=== PATIENT | male | born 1990 | race Caucasian/White ===

== ENCOUNTER 2017-01-11 16:25 | Observation (INO) ==
--- NOTE | 2017-01-11 16:55 | Emergency Department Report ---
Abdominal Pain HPI - General Chief Complaint: Abdominal Pain Stated Complaint: Severe Abdominal Pain Time Seen by Provider: 01/11/17 16:55 Source: patient Mode of arrival: ambulatory Limitations: no limitations - History of Present Illness HPI narrative: Patient is a 26-year-old male presents emergency room for evaluation of lower abdominal pain. Patient started yesterday somewhat suprapubic now somewhat localizes to the right lower quadrant. Patient's had nausea no vomiting has had bowel movements 3 there are softer. Patient denies any fevers or chills, this evening he decided present to the ER for evaluation MD complaint: abdominal pain Onset (ago): day(s) (2) Consistency: constant Location: periumbilical Severity: severe Severity scale (1-10): 9 Quality: cramping Radiation: RLQ Migration to: no migration - Related Data Home Medications Medication Instructions Recorded Confirmed No known Home medications [No home 01/11/17 01/11/17 meds] Allergies Allergy/AdvReac Type Severity Reaction Status Date / Time Iodine and Iodide Containing Allergy Unknown Rash Verified 01/11/17 16:56 Produc Review of Systems Constitutional: Reports: weakness. Denies: fever, chills Cardiovascular: Denies: chest pain, palpitations Gastrointestinal: Reports: abdominal pain, nausea. Denies: vomiting Genitourinary: Denies: dysuria, frequency Musculoskeletal: Denies: back pain Neurological: Denies: headache Psychiatric: Denies: anxiety, depression PFSH Patient Stated Medical History Hypertension Yes Surgical History: no abdominal surgery - Social History Smoking status: Never smoker Substance use type: does not use Alcohol intake frequency: does not drink Physical Exam - General General appearance: alert, in no apparent distress - Eye Eye exam: Present: EOMI - ENT ENT exam: Present: normal exam - Neck Neck exam: Present: full ROM - Chest Chest inspection: Present: symmetric chest wall rise. Absent: tenderness - Respiratory Respiratory exam: Present: normal lung sounds bilaterally, respiratory distress. Absent: wheezes, stridor - Cardiovascular Cardiovascular exam: Present: regular rate, normal rhythm, normal heart sounds - Abdominal Exam Abdominal exam: Present: soft, tenderness, guarding, normal bowel sounds, obturator sign, heel tap sign, tenderness at McBurney's Point Abdominal tenderness: Present: RLQ, suprapubic, moderate - Extremities Exam Extremities exam: Present: full ROM - Back Exam Back exam: Present: full ROM - Skin Skin exam: Present: warm, dry - Neurological Exam Neurological exam: Present: alert, oriented X3 - Psychiatric Psychiatric exam: Present: normal affect, normal mood Course Vital Signs Temperature 98.7 F 01/11/17 16:33 Pulse Rate 91 01/11/17 16:33 Respiratory Rate 18 01/11/17 16:33 Blood Pressure 163/66 H 01/11/17 16:33 Pulse Oximetry 98 01/11/17 16:33 Temperature 98.7 F 01/11/17 16:33 Pulse Rate 91 01/11/17 16:33 Respiratory Rate 18 01/11/17 16:33 Blood Pressure 163/66 H 01/11/17 16:33 Pulse Oximetry 98 01/11/17 16:33 Abdominal Pain - MDM Narrative Medical decision making narrative: Discuss case with Dr. Pratik Sprague, he would recommend Invanz 1 g IV, he will evaluate patient for surgery - Differential Diagnosis Differential diagnosis: Likely: abdominal pain, acute appendicitis, calculus of kidney, constipation, diverticulitis, endometriosis, gastroenteritis, small bowel obstruction - Medical Records Attestation: I reviewed the patient's medical records. - Lab Data Attestation: I reviewed the patient's lab results. Result diagrams: 01/11/17 17:41 01/11/17 17:41 - Radiology Data Attestation: I reviewed the patient's radiology results. CT scan consistent with very early appendicitis Disposition Prescriptions: No Action No known Home medications [No home meds] 0 #0 misc - Seen By: physician
[2017-01-11] MEDS ORDERED: FentaNYL 100 MCG/2 ML INJECTION IVP ONE (16:59)
[2017-01-11] MEDS ORDERED: ONDANSETRON 4 MG/2 ML INJECTION IVP ONE (16:59)
--- OUTSIDE RECORDS SUMMARY | 2017-01-11 17:00 | External Medical Summary | Referral Summary ---
:1990 Author Organization [facility] Address [address] [place] [address] Care Team Providers Name Role Phone Carolynn Sandoval Primary Care Physician Encounter [facility] [id number] Date(s): 06/19/16 - 06/19/16 [address] [place] [address] [place] Discharge Diagnosis: Chronic back pain Discharge Disposition: 01-Home or Self Care Attending Physician: Vadim Silver MD Admitting Physician: Vadim Silver MD Vital Signs Most recent to oldest [Reference Range]: 1 Temperature Oral [35.8-37.3 degC] 37.1 degC (06/19/16 6:42 PM) Peripheral Pulse Rate [60-100 bpm] 86 bpm (06/19/16 6:42 PM) Respiratory Rate [14-20 br/min] 16 br/min (06/19/16 6:42 PM) Blood Pressure [90-140/60-90 mmHg] 143/83mmHg *HI* (06/19/16 6:42 PM) SpO2 100 % (06/19/16 6:42 PM) Problem List Condition Effective Dates Status Health Status Informant Allergies(Confirmed) Active Carpal tunnel syndrome(Confirmed) Active Hypertension(Confirmed) Active patient Right knee injury(Confirmed) 2010 Active Kidney stones(Confirmed) Active patient Narcotic addiction(Confirmed) Active patient Tobacco user(Confirmed) Active patient Allergies, Adverse Reactions, Alerts Substance Reaction Severity Status iodine Adverse Reaction Mild Active Medications cyclobenzaprine 10 mg oral tablet 10 mg 1 tabs, Oral, TID, as needed for spasm, # 30 tabs, 0 Refill(s) Start Date: 06/19/16 Stop Date: 06/19/17 Status: Orderedcyclobenzaprine 10 mg oral tablet 10 mg 1 tabs, Oral, TID, as needed for spasm, # 30 tabs, 0 Refill(s) Start Date: 07/02/15 Status: Orderedcyclobenzaprine 10 mg oral tablet 10 mg 1 tabs, Oral, TID, as needed for spasm, YULIA/Vadim Silver MD., X 3 days, # 9 tabs, 0 Refill(s) Start Date: 06/18/16 Stop Date: 06/21/16 Status: OrderedHYDROcodone-acetaminophen 5 mg-325 mg oral tablet 1 tabs, Oral, q4hr, Pain Moderate (4-6), # 12 tabs, 0 Refill(s) Start Date: 05/11/14 Status: Orderedibuprofen 800 mg oral tablet 800 mg 1 tabs, Oral, TID, # 90 tabs, 0 Refill(s) Start Date: 07/02/15 Status: Orderedibuprofen 800 mg oral tablet 1 tabs, Oral, q8hr, as needed for pain, # 21 tabs, 0 Refill(s) Start Date: 01/09/14 Stop Date: 01/16/14 Status: Orderedlisinopril Oral, Daily, 0 Refill(s) Start Date: 11/17/15 Status: OrderedNorco 5 mg-325 mg oral tablet 1 tabs, Oral, q4hr, as needed for pain, not to exceed 8 tablets/day YULIA/Vadim Silver MD., # 12 tabs, 0 Refill(s) Start Date: 06/18/16 Stop Date: 06/23/16 Status: OrderedNorco 7.5 mg-325 mg oral tablet 1 tabs, Oral, q6hr, # 12 tabs, 0 Refill(s) Start Date: 07/02/15 Status: OrderedOrajel Mouth Sore Rinse 1.5% mucous membrane solution 0.15 g 10 mL, Oral, QIDACHS, swish and spit; do not swallow, # 280 mL, 0 Refill( s) Start Date: 04/24/15 Stop Date: 05/01/15 Status: OrderedPriLOSEC 20 mg oral delayed release capsule 20 mg 1 caps, Oral, Daily, # 30 caps, 0 Refill(s) Start Date: 03/13/16 Status: Ordered Results No data available for this section Immunizations No data available for this section Procedures Procedure Date Related Diagnosis Body Site Closed Tx of the Rt Tibia Plateau Fx 02/08/11 Arthroscopy of knee Bilateral Myringotomy1 Rt Testicle Lowered [place] teeth removed 1as an Social History Social History Type Response Smoking Status Current every day smoker; Type: chewing tobacco1 1x 10 years Assessment and Plan No data available for this section
--- OUTSIDE RECORDS SUMMARY | 2017-01-11 17:00 | External Medical Summary | Referral Summary ---
:1990 Author Organization [facility] Address [address] [place] [address] Care Team Providers Name Role Phone Carolynn Sandoval Primary Care Physician Encounter [facility] [id number] Date(s): 03/12/16 - 03/13/[address] [address] Discharge Diagnosis: Abdominal pain Discharge Diagnosis: Depression Discharge Disposition: 01-Home or Self Care Attending Physician: Vadim Silver MD Admitting Physician: Vadim Silver MD Vital Signs Most recent to oldest [Reference Range]: 1 Temperature Oral [35.8-37.3 degC] 36.9 degC (03/12/16 9:37 PM) Peripheral Pulse Rate [60-100 bpm] 78 bpm (03/13/16 3:59 AM) Heart Rate Monitored [60-100 bpm] 68 bpm (03/13/16 2:50 AM) Respiratory Rate [14-20 br/min] 18 br/min (03/13/16 3:59 AM) Blood Pressure [90-140/60-90 mmHg] 136/87mmHg (03/13/16 3:59 AM) Mean Arterial Pressure, Cuff 87 mmHg (03/13/16 2:50 AM) SpO2 100 % (03/13/16 3:59 AM) Problem List Condition Effective Dates Status Health [...] tabs, 0 Refill(s) Start Date: 07/02/15 Status: OrderedHYDROcodone-acetaminophen 5 mg-325 mg oral tablet [...] 0 Refill(s) Start Date: 11/17/15 Status: OrderedNorco 7.5 mg-325 mg oral tablet [...] Refill(s) Start Date: 03/13/16 Status: Ordered Results Hematology Most recent to oldest [Reference Range]: 1 WBC [4.8-10.8 10*3/uL] 10.4 10*3/uL (03/12/16 11:48 PM) RBC [4.60-6.20] 5.65 (03/12/16 11:48 PM) Hgb [14.0-18.0 gm/dL] 16.9 gm/dL (03/12/16 11:48 PM) Hct [42.0-52.0 %] 47.5 % (03/12/16 11:48 PM) MCV [82.0-99.0 fL] 84.1 fL (03/12/16 11:48 PM) MCH [27.0-32.0 pg] 29.9 pg (03/12/16 11:48 PM) MCHC [32.0-36.0 gm/dL] 35.6 gm/dL (03/12/16 11:48 PM) RDW [11.5-14.5 %] 12.3 % (03/12/16 11:48 PM) Platelet [150-400 10*3/uL] 263 10*3/uL (03/12/16 11:48 PM) MPV [9.4-12.3 fL] 10.9 fL (03/12/16 11:48 PM) Immature Granulocytes [0.0-1.0 %] 0.2 % (03/12/16 11:48 PM) Neutrophils [51-75 %] 57 % (03/12/16 11:48 PM) Lymphocytes [20-46 %] 32 % (03/12/16 11:48 PM) Monocytes [4-11 %] 8 % (03/12/16 11:48 PM) Eosinophils [0-4 %] 2 % (03/12/16 11:48 PM) Basophils [0-2 %] 0 % (03/12/16 11:48 PM) Neutro Absolute [1.90-7.00 10*3] 5.95 10*3 (03/12/16 11:48 PM) Lymph Absolute [0.80-3.30 10*3] 3.36 10*3 *HI* (03/12/16 11:48 PM) George Absolute [0.30-1.00 10*3] 0.84 10*3 (03/12/16 11:48 PM) Eos Absolute [0.00-0.50 10*3] 0.23 10*3 (03/12/16 11:48 PM) Baso Absolute [0.00-0.20 10*3] 0.01 10*3 (03/12/16 11:48 PM) Nucleated RBC Automated [0 /100 WBC] 0.0 /100 WBC (03/12/16 11:48 PM) Differential Scanned Slide (03/12/16 11:48 PM) Chemistry Most recent to oldest [Reference Range]: 1 Sodium Lvl [136-144 mEq/L] 139 mEq/L (03/12/16 11:48 PM) Potassium Lvl [3.6-5.1 mEq/L] 3.6 mEq/L (03/12/16 11:48 PM) Chloride [99-109 mEq/L] 106 mEq/L (03/12/16 11:48 PM) CO2 [22-32 mEq/L] 25 mEq/L (03/12/16 11:48 PM) AGAP [3-20] 8 (03/12/16 11:48 PM) BUN [4-20 mg/dL] 10 mg/dL (03/12/16 11:48 PM) Glucose Lvl [70-100 mg/dL] 94 mg/dL (03/12/16 11:48 PM) Creatinine Lvl [0.64-1.27 mg/dL] 0.78 mg/dL (03/12/16 11:48 PM) eGFR [>60] >601 (03/12/16 11:48 PM) Calcium Lvl [8.6-10.0 mg/dL] 9.5 mg/dL (03/12/16 11:48 PM) Albumin Lvl [3.5-4.8 gm/dL] 4.4 gm/dL (03/12/16 11:48 PM) Total Protein [6.1-7.9 gm/dL] 7.5 gm/dL (03/12/16 11:48 PM) Globulin [1.9-4.3 gm/dL] 3.1 gm/dL (03/12/16 11:48 PM) ALT [17-63 U/L] 53 U/L (03/12/16 11:48 PM) AST [15-41 U/L] 28 U/L (03/12/16 11:48 PM) Alk Phos [26-104 U/L] 111 U/L *HI* (03/12/16 11:48 PM) Bili Total [0.2-1.2 mg/dL] 1.1 mg/dL2 (03/12/16 11:48 PM) Lipase Lvl [8-48 U/L] 30 U/L (03/12/16 11:48 PM) 1Result Comment: Multiply eGFR results by 1.21 for race.2Result Comment: Naproxen, specifically the metabolite O-desmethylnaproxen, may cause spurious elevation in Total Bilirubin levels.Urinalysis Most recent to oldest [Reference Range]: 1 UA Color Yellow (03/12/16 11:48 PM) UA Appear Clear (03/12/16 11:48 PM) UA pH [5.0-8.0] 6.0 (03/12/16 11:48 PM) UA Leuk Est [Negative] Negative (03/12/16 11:48 PM) UA Nitrite [Negative] Negative (03/12/16 11:48 PM) UA Protein [Negative] Negative (03/12/16 11:48 PM) UA Glucose [Negative] Negative (03/12/16 11:48 PM) UA Ketones [Negative] Negative (03/12/16 11:48 PM) UA Urobilinogen [<1.0 mg/dL] 2.0 mg/dL *ABN* (03/12/16 11:48 PM) UA Bili [Negative] Negative (03/12/16 11:48 PM) UA Blood [Negative] Negative (03/12/16 11:48 PM) UA Spec Grav [1.003-1.030] 1.025 (03/12/16 11:48 PM) Type Clean Catch (03/12/16 11:48 PM) Immunizations No data available for this section Procedures Procedure Date Related Diagnosis Body Site Closed Tx of the Rt Tibia Plateau Fx 02/08/11 Arthroscopy of knee Bilateral Myringotomy1 Rt Testicle Lowered [place] teeth removed 1as an Social History Social History Type Response Smoking Status Current every day smoker; Type: chewing tobacco1 1x 10 years Assessment and Plan No data available for this section
--- OUTSIDE RECORDS SUMMARY | 2017-01-11 17:00 | External Medical Summary | Referral Summary ---
:1990 Author Organization [facility] Address [address] [place] [address] Care Team Providers Name Role Phone No PCP, States Primary Care Physician Encounter [facility] [id number] Date(s): 07/04/15 - 07/04/15 [address] [place] [address] [phone] Discharge Diagnosis: Epididymitis Discharge Disposition: 01-Home or Self Care Attending Physician: Vadim Silver MD Admitting Physician: Vadim Silver MD Vital Signs Most recent to oldest [Reference Range]: 1 Temperature Oral [35.8-37.3 degC] 36.8 degC (07/04/15 5:01 PM) Peripheral Pulse Rate [60-100 bpm] 93 bpm (07/04/15 5:01 PM) Heart Rate Monitored [60-100 bpm] 96 bpm (07/04/15 10:15 PM) Respiratory Rate [14-20 br/min] 18 br/min (07/04/15 10:15 PM) Blood Pressure [90-140/60-90 mmHg] 135/91mmHg (07/04/15 10:15 PM) SpO2 98 % (07/04/15 10:15 PM) Problem List Condition Effective Dates Status Health Status Informant Allergies(Confirmed) Active Carpal tunnel syndrome(Confirmed) Active Hypertension(Confirmed) Active patient Right knee injury(Confirmed) 2010 Active Kidney stones(Confirmed) Active patient Narcotic addiction(Confirmed) Active patient Tobacco user(Confirmed) Active patient Allergies, Adverse Reactions, Alerts Substance Reaction Severity Status iodine Adverse Reaction Active Medications calcium carbonate 0 Refill(s) Start Date: 08/01/14 Status: OrderedCipro 500 mg oral tablet 500 mg 1 tabs, Oral, q12hr, X 7 days, # 14 tabs, 0 Refill(s) Start Date: 07/04/15 Stop Date: 07/11/15 Status: Orderedcyclobenzaprine 10 mg oral tablet 10 mg 1 tabs, Oral, TID, as needed for spasm, # 30 tabs, 0 Refill(s) Start Date: 07/02/15 Status: Orderedcyclobenzaprine 10 mg oral tablet 10 mg 1 tabs, Oral, Bedtime (once a day), as needed for spasm, X 5 days, # 5 tabs, 0 Refill(s) Start Date: 07/04/15 Stop Date: 07/09/15 Status: OrderedDHEA Oral, Daily, 0 Refill(s) Start Date: 08/01/14 Status: OrderedHYDROcodone-acetaminophen 5 mg-325 mg oral tablet 1 tabs, Oral, q4hr, Pain Moderate (4-6), # 12 tabs, 0 Refill(s) Start Date: 05/11/14 Status: Orderedibuprofen 600 mg oral tablet 1 tabs, Oral, q8hr, # 30 tabs, 0 Refill(s) Start Date: 01/24/14 Status: Orderedibuprofen 800 mg oral tablet 800 mg 1 tabs, Oral, TID, # 90 tabs, 0 Refill(s) Start Date: 07/02/15 Status: Orderedibuprofen 800 mg oral tablet 1 tabs, Oral, q8hr, as needed for pain, # 21 tabs, 0 Refill(s) Start Date: 01/09/14 Stop Date: 01/16/14 Status: Orderedmagnesium lactate mg, Oral, BID, 0 Refill(s) Start Date: 08/01/14 Status: OrderedMedrol Dosepak 4 mg oral tablet 1 packets, Oral, Once, as directed on package labeling, # 21 tabs, 0 Refill(s) Start Date: 02/07/15 Status: OrderedNaprosyn 375 mg oral tablet 375 mg 1 tabs, Oral, BID, as needed for pain, # 20 tabs, 0 Refill(s) Start Date: 01/31/15 Stop Date: 02/10/15 Status: OrderedNorco 7.5 mg-325 mg oral tablet 1 tabs, Oral, q6hr, # 12 tabs, 0 Refill(s) Start Date: 07/02/15 Status: OrderedOrajel Mouth Sore Rinse 1.5% mucous membrane solution 0.15 g 10 mL, Oral, QIDACHS, swish and spit; do not swallow, # 280 mL, 0 Refill( s) Start Date: 04/24/15 Stop Date: 05/01/15 Status: OrderedtraMADol 50 mg oral tablet 50 mg 1 tabs, Oral, q12hr, as needed for pain, X 5 days, # 10 tabs, 0 Refill(s) Start Date: 07/04/15 Stop Date: 07/09/15 Status: OrderedVitamin C 0 Refill(s) Start Date: 08/01/14 Status: Ordered Results Urinalysis Most recent to oldest [Reference Range]: 1 UA Color Yellow (07/04/15 6:54 PM) UA Appear Clear (07/04/15 6:54 PM) UA pH [5.0-8.0] 7.0 (07/04/15 6:54 PM) UA Leuk Est [Negative] Negative (07/04/15 6:54 PM) UA Nitrite [Negative] Negative (07/04/15 6:54 PM) UA Protein [Negative] Negative (07/04/15 6:54 PM) UA Glucose [Negative] Negative (07/04/15 6:54 PM) UA Ketones [Negative] Negative (07/04/15 6:54 PM) UA Urobilinogen [<1.0 mg/dL] >=4.0 mg/dL (07/04/15 6:54 PM) UA Bili [Negative] Negative (07/04/15 6:54 PM) UA Blood [Negative] Negative (07/04/15 6:54 PM) UA Spec Grav [1.003-1.030] 1.025 (07/04/15 6:54 PM) Type Clean Catch (07/04/15 6:54 PM) Immunizations No data available for this section Procedures Procedure Date Related Diagnosis Body Site Closed Tx of the Rt [place] Plateau Fx 02/08/11 Arthroscopy of knee Bilateral Myringotomy1 Rt Testicle Lowered [place] teeth removed 1as an Social History Social History Type Response Smoking Status Current every day smoker; Type: chewing tobacco1 1x 10 years Assessment and Plan No data available for this section
--- OUTSIDE RECORDS SUMMARY | 2017-01-11 17:00 | External Medical Summary | Referral Summary ---
:1990 Author Organization [facility] Address [address] [place] [address] Care Team Providers Name Role Phone No PCP, Pt States Primary Care Physician Encounter [facility] [id number] Date(s): 01/04/16 - 01/04/[address] [address] [phone] Discharge Disposition: Left Without Being Seen Attending Physician: Vadim Silver MD Admitting Physician: Vadim Silver MD Vital Signs Most recent to oldest [Reference Range]: 1 Temperature Oral [35.8-37.3 degC] 37.5 degC *HI* (01/04/16 1:41 PM) Peripheral Pulse Rate [60-100 bpm] 102 bpm *HI* (01/04/16 1:41 PM) Respiratory Rate [14-20 br/min] 18 br/min (01/04/16 1:41 PM) Blood Pressure [90-140/60-90 mmHg] 146/81mmHg *HI* (01/04/16 1:41 PM) SpO2 97 % (01/04/16 1:41 PM) Problem List Condition Effective Dates Status Health Status Informant Allergies(Confirmed) Active Carpal tunnel syndrome(Confirmed) Active Hypertension(Confirmed) Active patient Right knee injury(Confirmed) 2010 Active Kidney stones(Confirmed) Active patient Narcotic addiction(Confirmed) Active patient Tobacco user(Confirmed) Active patient Allergies, Adverse Reactions, Alerts Substance Reaction Severity Status iodine Adverse Reaction Mild Active Medications calcium carbonate 0 Refill(s) Start Date: 08/01/14 Status: Orderedcyclobenzaprine 10 mg oral tablet 10 mg 1 tabs, Oral, TID, as needed for spasm, # 30 tabs, 0 Refill(s) Start Date: 07/02/15 Status: OrderedDHEA Oral, Daily, 0 Refill(s) Start Date: 08/01/14 Status: OrderedHYDROcodone-acetaminophen 5 mg-325 mg oral tablet 1 tabs, Oral, q4hr, Pain Moderate (4-6), # 12 tabs, 0 Refill(s) Start Date: 05/11/14 Status: Orderedibuprofen 600 mg oral tablet 1 tabs, Oral, q8hr, # 30 tabs, 0 Refill(s) Start Date: 01/24/14 Status: Orderedibuprofen 800 mg oral tablet 800 mg 1 tabs, Oral, TID, as needed for pain, # 20 tabs, 0 Refill(s) Start Date: 11/02/15 Status: Orderedibuprofen 800 mg oral tablet 800 mg 1 tabs, Oral, TID, # 90 tabs, 0 Refill(s) Start Date: 07/02/15 Status: Orderedibuprofen 800 mg oral tablet 1 tabs, Oral, q8hr, as needed for pain, # 21 tabs, 0 Refill(s) Start Date: 01/09/14 Stop Date: 01/16/14 Status: Orderedlisinopril Oral, Daily, 0 Refill(s) Start Date: 11/17/15 Status: Orderedmagnesium lactate mg, Oral, BID, 0 Refill(s) Start Date: 08/01/14 Status: Orderedmeclizine 25 mg oral tablet 25 mg 1 tabs, Oral, TID, as needed for dizziness, # 12 tabs, 0 Refill(s) Start Date: 09/14/15 Status: OrderedMedrol Dosepak 4 mg oral tablet 1 packets, Oral, Once, as directed on package labeling, # 21 tabs, 0 Refill(s) Start Date: 02/07/15 Status: OrderedNaprosyn 375 mg oral tablet 375 mg 1 tabs, Oral, BID, as needed for pain, # 20 tabs, 0 Refill(s) Start Date: 01/31/15 Stop Date: 02/10/15 Status: OrderedNaprosyn 500 mg oral tablet 500 mg 1 tabs, Oral, BID, as needed for pain, # 20 tabs, 0 Refill(s) Start Date: 11/17/15 Status: OrderedNorco 7.5 mg-325 mg oral tablet 1 tabs, Oral, q6hr, # 12 tabs, 0 Refill(s) Start Date: 07/02/15 Status: OrderedOrajel Mouth Sore Rinse 1.5% mucous membrane solution 0.15 g 10 mL, Oral, QIDACHS, swish and spit; do not swallow, # 280 mL, 0 Refill( s) Start Date: 04/24/15 Stop Date: 05/01/15 Status: OrderedtiZANidine 4 mg oral capsule 4 mg 1 caps, Oral, TID, # 30 caps, 0 Refill(s) Start Date: 11/02/15 Status: OrderedVitamin C 0 Refill(s) Start Date: 08/01/14 Status: Ordered Results No data available for this section Immunizations No data available for this section Procedures Procedure Date Related Diagnosis Body Site Closed Tx of the Rt Tibia Plateau Fx 02/08/11 Arthroscopy of knee Bilateral Myringotomy1 Rt Testicle Lowered [place] teeth removed 1as an infant Social History Social History Type Response Smoking Status Current every day smoker; Type: chewing tobacco1 1x 10 years Assessment and Plan No data available for this section
--- OUTSIDE RECORDS SUMMARY | 2017-01-11 17:00 | External Medical Summary | Referral Summary ---
:1990 Author Organization [facility] Address [address] [place] [address] Care Team Providers Name Role Phone No PCP, Pt States Primary Care Physician Encounter [facility] [id number] Date(s): 11/02/15 - 11/02/[address] [address] Discharge Diagnosis: Inguinal muscle strain Discharge Diagnosis: Low back pain Discharge Disposition: 01-Home or Self Care Attending Physician: Vadim Silver MD Admitting Physician: Vadim Silver MD Vital Signs Most recent to oldest [Reference Range]: 1 Temperature Oral [35.8-37.3 degC] 36.7 degC (11/02/15 9:54 AM) Peripheral Pulse Rate [60-100 bpm] 80 bpm (11/02/15 7:19 AM) Heart Rate Monitored [60-100 bpm] 74 bpm (11/02/15 9:54 AM) Respiratory Rate [14-20 br/min] 20 br/min (11/02/15 9:54 AM) Blood Pressure [90-140/60-90 mmHg] 124/54mmHg (11/02/15 9:54 AM) Mean Arterial Pressure, Cuff 93 mmHg (11/02/15 8:20 AM) SpO2 99 % (11/02/15 9:54 AM) Problem List Condition Effective Dates Status [...] 0 Refill(s) Start Date: 07/02/15 Status: Orderedcyclobenzaprine 5 mg oral tablet 5 mg 1 tabs, Oral, TID, X 7 days, # 21 tabs, 0 Refill(s) Start Date: 11/02/15 Stop Date: 11/09/15 Status: OrderedDHEA Oral, Daily, 0 Refill(s) Start [...] Refill(s) Start Date: 08/01/14 Status: Ordered Results Hematology Most recent to oldest [Reference Range]: 1 WBC [4.8-10.8 10*3/uL] 6.4 10*3/uL (11/02/15 8:06 AM) RBC [4.60-6.20] 5.18 (11/02/15 8:06 AM) Hgb [14.0-18.0 gm/dL] 15.9 gm/dL (11/02/15 8:06 AM) Hct [42.0-52.0 %] 43.5 % (11/02/15 8:06 AM) MCV [82.0-99.0 fL] 84.0 fL (11/02/15 8:06 AM) MCH [27.0-32.0 pg] 30.7 pg (11/02/15 8:06 AM) MCHC [32.0-36.0 gm/dL] 36.6 gm/dL *HI* (11/02/15 8:06 AM) RDW [11.5-14.5 %] 13.0 % (11/02/15 8:06 AM) Platelet [150-400 10*3/uL] 236 10*3/uL (11/02/15 8:06 AM) MPV [9.4-12.3 fL] 11.0 fL (11/02/15 8:06 AM) Neutrophils [51-75 %] 71 % (11/02/15 8:06 AM) Band Man [0-8 %] 4 % (11/02/15 8:06 AM) Lymphocytes [20-46 %] 16 % *LOW* (11/02/15 AM) Monocytes [4-11 %] 4 % (11/02/15 8:06 AM) Eosinophils [0-4 %] 4 % (11/02/15 8:06 AM) Basophils [0-2 %] 1 % (11/02/15: AM) Neutro Absolute [1.90-7.00 10*3] 4.80 10*3 (11/02/15 8:06 AM) Lymph Absolute [0.80-3.30 10*3] 1.02 10*3 (11/02/15: AM) [place] Absolute [0.30-1.00 10*3] 0.26 10*3 *LOW* (11/02/15:06 AM) Eos Absolute [0.00-0.50 10*3] 0.26 10*3 (11/02/15:06 AM) Baso Absolute [0.00-0.20 10*3] 0.06 10*3 (11/02/15 8:06 AM) Nucleated RBC Automated [0 /100 WBC] 0.0 /100 WBC (11/02/15: AM) Differential Reviewed (11/02/15: AM) Chemistry Most recent to oldest [Reference Range]: 1 Sodium Lvl [136-144 mEq/L] 139 mEq/L (11/02/15:06 AM) Potassium Lvl [3.6-5.1 mEq/L] 4.0 mEq/L (11/02/15:06 AM) Chloride [99-109 mEq/L] 107 mEq/L (11/02/15 8:06 AM) CO2 [22-32 mEq/L] 27 mEq/L (11/02/15:06 AM) AGAP [3-20] 5 (11/02/15 8:06 AM) BUN [4-20 mg/dL] 11 mg/dL (11/02/15 8:06 AM) Glucose Lvl [70-100 mg/dL] 100 mg/dL (11/02/15 8:06 AM) Creatinine Lvl [0.64-1.27 mg/dL] 0.75 mg/dL (11/02/15 8:06 AM) eGFR [>60] >601 (11/02/15 8:06 AM) Calcium Lvl [8.6-10.0 mg/dL] 9.3 mg/dL (11/02/15 8:06 AM) Albumin Lvl [3.5-4.8 gm/dL] 4.1 gm/dL (11/02/15 8:06 AM) Total Protein [6.1-7.9 gm/dL] 7.0 gm/dL (11/02/15 8:06 AM) Globulin [1.9-4.3 gm/dL] 2.9 gm/dL (11/02/15 8:06 AM) ALT [17-63 U/L] 42 U/L (11/02/15 8:06 AM) AST [15-41 U/L] 25 U/L (11/02/15 8:06 AM) Alk Phos [26-104 U/L] 106 U/L *HI* (11/02/15 8:06 AM) Bili Total [0.2-1.2 mg/dL] 1.0 mg/dL2 (11/02/15 8:06 AM) Lipase Lvl [8-48 U/L] 27 U/L (11/02/15 8:06 AM) 1Result Comment: Multiply eGFR results by 1.21 for race.2Result Comment: Naproxen, specifically the metabolite O-desmethylnaproxen, may cause spurious elevation in Total Bilirubin levels.Urinalysis Most recent to oldest [Reference Range]: 1 UA Color Yellow (11/02/15 8:06 AM) UA Appear Clear (11/02/15 8:06 AM) UA pH [5.0-8.0] 6.0 (11/02/15 8:06 AM) UA Leuk Est [Negative] Negative (11/02/15 8:06 AM) UA Nitrite [Negative] Negative (11/02/15 8:06 AM) UA Protein [Negative] Negative (11/02/15 8:06 AM) UA Glucose [Negative] Negative (11/02/15 8:06 AM) UA Ketones [Negative] Negative (11/02/15 8:06 AM) UA Urobilinogen [<1.0 mg/dL] 2.0 mg/dL *ABN* (11/02/15 8:06 AM) UA Bili [Negative] Negative (11/02/15 8:06 AM) UA Blood [Negative] Negative (11/02/15 8:06 AM) UA Spec Grav [1.003-1.030] 1.025 (11/02/15 8:06 AM) Type Clean Catch (11/02/15 8:06 AM) Immunizations No data available for this section Procedures Procedure Date Related Diagnosis Body Site Closed Tx of the Rt Tibia Plateau Fx 02/08/11 Arthroscopy of knee Bilateral Myringotomy1 Rt Testicle Lowered [place] teeth removed 1as an infant Social History Social History Type Response Smoking Status Current every day smoker; Type: chewing tobacco1 1x 10 years Assessment and Plan No data available for this section
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
--- OUTSIDE RECORDS SUMMARY | 2017-01-11 17:00 | External Medical Summary | Referral Summary ---
:1990 Author Organization [facility] Address [address] [place] [address] Care Team Providers Name Role Phone No PCP, Pt States Primary Care Physician Encounter [facility] Date(s): 12/11/14 - 12/12/14 [facility] [address] [place] [address] [phone] Final: Migraine with aura, without mention of intractable migraine, without mention of status migrainosus Final: TOBACCO USE DISORDER Discharge Diagnosis: Classic migraine Discharge Disposition: 01-Home or Self Care Attending Physician: Diogo Rivera MD Admitting Physician: Diogo Rivera MD Vital Signs Most recent to oldest [Reference Range]: 1 Temperature Oral [35.8-37.3 degC] 36.9 degC (12/11/14 11:00 PM) Peripheral Pulse Rate [60-100 bpm] 61 bpm (12/12/14 4:53 AM) Heart Rate Monitored [60-100 bpm] 61 bpm (12/12/14 4:35 AM) Respiratory Rate [14-20 br/min] 16 br/min (12/12/14 4:53 AM) Blood Pressure [90-140/60-90 mmHg] 135/64mmHg (12/12/14 4:53 AM) Mean Arterial Pressure, Cuff 97 mmHg (12/12/14 4:35 AM) SpO2 97 % (12/12/14 4:35 AM) Problem List Condition Effective Dates Status [...] of knee Bilateral Myringotomy1 Rt Testicle Lowered [place] teeth removed 1as an infant Social History Social History Type Response Smoking Status Current every day smoker; Type: chewing tobacco1 1x 10 years Assessment and Plan No data available for this section
--- OUTSIDE RECORDS SUMMARY | 2017-01-11 17:00 | External Medical Summary | Referral Summary ---
:1990 Author Organization [facility] Address [address] [place] [address] Care Team Providers Name Role Phone No PCP, Pt States Primary Care Physician Encounter [facility] [id number] Date(s): 06/07/15 - 06/08/15 [address] [place] [address] Discharge Diagnosis: Vomiting and diarrhea Discharge Diagnosis: Diarrhea Discharge Diagnosis: Vomiting Discharge Disposition: 01-Home or Self Care Attending Physician: Sam Noble MD Admitting Physician: Sam Noble MD Vital Signs Most recent to oldest [Reference Range]: 1 Temperature Oral [35.8-37.3 degC] 36.8 degC (06/07/15 11:40 PM) Peripheral Pulse Rate [60-100 bpm] 82 bpm (06/07/15 11:40 PM) Heart Rate Monitored [60-100 bpm] 74 bpm (06/08/15 1:39 AM) Respiratory Rate [14-20 br/min] 20 br/min (06/07/15 11:40 PM) Blood Pressure [90-140/60-90 mmHg] 122/64mmHg (06/08/15 2:19 AM) Mean Arterial Pressure, Cuff 92 mmHg (06/08/15 1:39 AM) SpO2 97 % (06/07/15 11:40 PM) Problem List Condition Effective Dates Status [...] Start Date: 01/09/14 Stop Date: 01/16/14 Status: OrderedImodium A-D 2 mg oral tablet 2 mg 1 tabs, Oral, TID, as needed for loose stool, X 3 days, # 9 tabs, 0 Refill( s) Start Date: 06/08/15 Stop Date: 06/11/15 Status: Orderedmagnesium lactate mg, Oral, BID, 0 Refill(s) Start Date: 08/01/14 Status: OrderedMedrol Dosepak 4 mg oral tablet 1 packets, Oral, Once, as directed on package labeling, # 21 tabs, 0 Refill(s) Start Date: 02/07/15 Status: OrderedNaprosyn 375 mg oral tablet 375 mg 1 tabs, Oral, BID, as needed for pain, # 20 tabs, 0 Refill(s) Start Date: 01/31/15 Stop Date: 02/10/15 Status: Orderedondansetron 4 mg oral disintegrating strip 1 tabs, Oral, q8hr, as needed for nausea/vomiting, X 3 days, # 9 tabs, 0 Refill( s) Start Date: 06/08/15 Stop Date: 06/11/15 Status: OrderedOrajel Mouth Sore Rinse 1.5% mucous membrane solution 0.15 g 10 mL, Oral, QIDACHS, swish and spit; do not swallow, # 280 mL, 0 Refill( s) Start Date: 04/24/15 Stop Date: 05/01/15 Status: OrderedVitamin C 0 Refill(s) Start Date: 08/01/14 Status: Ordered Results Hematology Most recent to oldest [Reference Range]: 1 WBC [4.8-10.8 10*3/uL] 11.7 10*3/uL *HI* (06/08/15 1:26 AM) RBC [4.60-6.20] 5.21 (06/08/15 1:26 AM) Hgb [14.0-18.0 gm/dL] 15.6 gm/dL (06/08/15 1:26 AM) Hct [42.0-52.0 %] 43.7 % (06/08/15 1:26 AM) MCV [82.0-99.0 fL] 83.9 fL (06/08/15 1:26 AM) MCH [27.0-32.0 pg] 29.9 pg (06/08/15 1:26 AM) MCHC [32.0-36.0 gm/dL] 35.7 gm/dL (06/08/15 1:26 AM) RDW [11.5-14.5 %] 12.9 % (06/08/15 1:26 AM) Platelet [150-400 10*3/uL] 303 10*3/uL (06/08/15 1:26 AM) MPV [9.4-12.3 fL] 10.8 fL (06/08/15 1:26 AM) Immature Granulocytes [0.0-1.0 %] 0.3 % (06/08/15 1:26 AM) Neutrophils [51-75 %] 76 % *HI* (06/08/15 1:26 AM) Lymphocytes [20-46 %] 15 % *LOW* (06/08/15 1:26 AM) Monocytes [4-11 %] 7 % (06/08/15 1:26 AM) Eosinophils [0-4 %] 2 % (06/08/15 1:26 AM) Basophils [0-2 %] 0 % (06/08/15 1:26 AM) Neutro Absolute [1.90-7.00 10*3] 8.82 10*3 *HI* (06/08/15 1:26 AM) Lymph Absolute [0.80-3.30 10*3] 1.74 10*3 (06/08/15 1:26 AM) [place] Absolute [0.30-1.00 10*3] 0.79 10*3 (06/08/15 1:26 AM) Eos Absolute [0.00-0.50 10*3] 0.28 10*3 (06/08/15 1:26 AM) Baso Absolute [0.00-0.20 10*3] 0.01 10*3 (06/08/15 1:26 AM) Nucleated RBC Automated [0 /100 WBC] 0.0 /100 WBC (06/08/15 1:26 AM) Chemistry Most recent to oldest [Reference Range]: 1 Sodium Lvl [136-144 mEq/L] 141 mEq/L (06/08/15 1:26 AM) Potassium Lvl [3.6-5.1 mEq/L] 4.0 mEq/L (06/08/15 1:26 AM) Chloride [99-109 mEq/L] 107 mEq/L (06/08/15 1:26 AM) CO2 [22-32 mEq/L] 28 mEq/L (06/08/15 1:26 AM) AGAP [3-20] 6 (06/08/15 1:26 AM) BUN [4-20 mg/dL] 8 mg/dL (06/08/15 1:26 AM) Glucose Lvl [70-100 mg/dL] 97 mg/dL (06/08/15 1:26 AM) Creatinine Lvl [0.64-1.27 mg/dL] 0.69 mg/dL (06/08/15 1:26 AM) eGFR [>60] >601 (06/08/15 1:26 AM) Calcium Lvl [8.6-10.0 mg/dL] 9.1 mg/dL (06/08/15 1:26 AM) Albumin Lvl [3.5-4.8 gm/dL] 3.9 gm/dL (06/08/15 1:26 AM) Total Protein [6.1-7.9 gm/dL] 6.8 gm/dL (06/08/15 1:26 AM) Globulin [1.9-4.3 gm/dL] 2.9 gm/dL (06/08/15 1:26 AM) ALT [17-63 U/L] 46 U/L (06/08/15 1:26 AM) AST [15-41 U/L] 24 U/L (06/08/15 1:26 AM) Alk Phos [26-104 U/L] 118 U/L *HI* (06/08/15 1:26 AM) Bili Total [0.2-1.2 mg/dL] 0.7 mg/dL2 (06/08/15 1:26 AM) Lipase Lvl [8-48 U/L] 27 U/L (06/08/15 1:26 AM) 1Result Comment: Multiply eGFR results by 1.21 for race.2Result Comment: Naproxen, specifically the metabolite O-desmethylnaproxen, may cause spurious elevation in Total Bilirubin levels. Immunizations No data available for this section Procedures Procedure Date Related Diagnosis Body Site Closed Tx of the Rt Tibia Plateau Fx 02/08/11 Arthroscopy of knee Bilateral Myringotomy1 Rt Testicle Lowered [place] teeth removed 1as an infant Social History Social History Type Response Smoking Status Current every day smoker; Type: chewing tobacco1 1x 10 years Assessment and Plan No data available for this section
--- OUTSIDE RECORDS SUMMARY | 2017-01-11 17:00 | External Medical Summary | Referral Summary ---
:1990 Author Organization Via [facility] Address [address] [place] [address] Care Team Providers Name Role Phone No PCP, Pt States Primary Care Physician Encounter [facility] [id number] Date(s): 04/23/15 - 04/24/15 [address] [place] [address] Discharge Diagnosis: Chewing tobacco use Discharge Diagnosis: Diarrhea Discharge Diagnosis: Ulcer of mouth Discharge Disposition: 01-Home or Self Care Attending Physician: Guicho Gomez MD Admitting Physician: Guicho Gomez MD Vital Signs Most recent to oldest [Reference Range]: 1 Temperature Oral [35.8-37.3 degC] 37.1 degC (04/23/15 10:51 PM) Peripheral Pulse Rate [60-100 bpm] 84 bpm (04/24/15 12:38 AM) Respiratory Rate [14-20 br/min] 18 br/min (04/23/15 10:51 PM) Blood Pressure [90-140/60-90 mmHg] 120/88mmHg (04/24/15 12:38 AM) SpO2 99 % (04/24/15 12:38 AM) Problem List Condition Effective Dates Status [...] oldest [Reference Range]: 1 WBC [4.8-10.8 10*3/uL] 7.2 10*3/uL (04/23/15 11:48 PM) RBC [4.60-6.20] 5.24 (04/23/15 11:48 PM) Hgb [14.0-18.0 gm/dL] 15.8 gm/dL (04/23/15 11:48 PM) Hct [42.0-52.0 %] 44.1 % (04/23/15 11:48 PM) MCV [82.0-99.0 fL] 84.2 fL (04/23/15 11:48 PM) MCH [27.0-32.0 pg] 30.2 pg (04/23/15 11:48 PM) MCHC [32.0-36.0 gm/dL] 35.8 gm/dL (04/23/15 11:48 PM) RDW [11.5-14.5 %] 12.2 % (04/23/15 11:48 PM) Platelet [150-400 10*3/uL] 251 10*3/uL (04/23/15 11:48 PM) MPV [9.4-12.3 fL] 11.0 fL (04/23/15 11:48 PM) Immature Granulocytes [0.0-1.0 %] 0.1 % (04/23/15 11:48 PM) Neutrophils [51-75 %] 49 % *LOW* (04/23/15 11:48 PM) Lymphocytes [20-46 %] 40 % (04/23/15 11:48 PM) Monocytes [4-11 %] 7 % (04/23/15 11:48 PM) Eosinophils [0-4 %] 4 % (04/23/15 11:48 PM) Basophils [0-2 %] 0 % (04/23/15 11:48 PM) Neutro Absolute [1.90-7.00 10*3] 3.50 10*3 (04/23/15 11:48 PM) Lymph Absolute [0.80-3.30 10*3] 2.85 10*3 (04/23/15 11:48 PM) [place] Absolute [0.30-1.00 10*3] 0.51 10*3 (04/23/15 11:48 PM) Eos Absolute [0.00-0.50 10*3] 0.31 10*3 (04/23/15 11:48 PM) Baso Absolute [0.00-0.20 10*3] 0.01 10*3 (04/23/15 11:48 PM) Nucleated RBC Automated [0 /100 WBC] 0.0 /100 WBC (04/23/15 11:48 PM) Chemistry Most recent to oldest [Reference Range]: 1 Sodium Lvl [136-144 mEq/L] 140 mEq/L (04/23/15 11:48 PM) Potassium Lvl [3.6-5.1 mEq/L] 3.9 mEq/L (04/23/15 11:48 PM) Chloride [99-109 mEq/L] 105 mEq/L (04/23/15 11:48 PM) CO2 [22-32 mEq/L] 27 mEq/L (04/23/15 11:48 PM) AGAP [3-20] 8 (04/23/15 11:48 PM) BUN [4-20 mg/dL] 17 mg/dL (04/23/15 11:48 PM) Glucose Lvl [70-100 mg/dL] 121 mg/dL *HI* (04/23/15 11:48 PM) Creatinine Lvl [0.64-1.27 mg/dL] 0.73 mg/dL (04/23/15 11:48 PM) eGFR [>60] >601 (04/23/15:48 PM) Calcium Lvl [8.6-10.0 mg/dL] 9.3 mg/dL (04/23/15 11:48 PM) Albumin Lvl [3.5-4.8 gm/dL] 4.2 gm/dL (04/23/15 11:48 PM) Total Protein [6.1-7.9 gm/dL] 6.9 gm/dL (04/23/15 11:48 PM) Globulin [1.9-4.3 gm/dL] 2.7 gm/dL (04/23/15 11:48 PM) ALT [17-63 U/L] 47 U/L (04/23/15 11:48 PM) AST [15-41 U/L] 30 U/L (04/23/15 11:48 PM) Alk Phos [26-104 U/L] 104 U/L (04/23/15 11:48 PM) Bili Total [0.2-1.2 mg/dL] 0.7 mg/dL2 (04/23/15 11:48 PM) Lipase Lvl [8-48 U/L] 22 U/L (04/23/15 11:48 PM) 1Result Comment: Multiply eGFR results by 1.21 for race.2Result Comment: Naproxen, specifically the metabolite O-desmethylnaproxen, may cause spurious elevation in Total Bilirubin levels. Immunizations No data available for this section Procedures Procedure Date Related Diagnosis Body Site Closed Tx of the Rt Tibia Plateau Fx 02/08/11 Arthroscopy of knee Bilateral Myringotomy1 Rt Testicle Lowered [place] teeth removed 1as an Social History Social History Type Response Smoking Status Current every day smoker; Type: chewing tobacco1 1x 10 years Assessment and Plan No data available for this section
--- OUTSIDE RECORDS SUMMARY | 2017-01-11 17:01 | External Medical Summary | Referral Summary ---
:1990 Author Organization Via [facility] Address [address] [place] [address] Care Team Providers Name Role Phone Carolynn Sandoval Primary Care Physician Encounter [facility] [id number] Date(s): 06/18/16 - 06/18/[address] [address] Discharge Diagnosis: Strain of lumbar paraspinous muscle Discharge Disposition: 01-Home or Self Care Attending Physician: Vadim Silver MD Admitting Physician: Vadim Silver MD Vital Signs Most recent to oldest [Reference Range]: 1 Temperature Oral [35.8-37.3 degC] 36.2 degC (06/18/16 1:40 PM) Apical Heart Rate [60-100 bpm] 98 bpm (06/18/16 3:25 PM) Peripheral Pulse Rate [60-100 bpm] 122 bpm *HI* (06/18/16 1:40 PM) Respiratory Rate [14-20 br/min] 20 br/min (06/18/16 1:40 PM) Blood Pressure [90-140/60-90 mmHg] 154/53mmHg *HI* (06/18/16 3:25 PM) SpO2 98 % (06/18/16 3:25 PM) Problem List Condition Effective Dates Status [...] # 30 tabs, 0 Refill(s) Start Date: 1/7/16 Status: Orderedcyclobenzaprine 10 mg oral tablet 10 [...] for pain, not to exceed 8 tablets/day SUP/Vadim Silver MD., # 12 tabs, 0 Refill(s) [...] of knee Bilateral Myringotomy1 Rt Testicle Lowered [place] teeth removed 1as an Social History Social History Type Response Smoking Status Current every day smoker; Type: chewing tobacco1 1x 10 years Assessment and Plan No data available for this section
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
--- OUTSIDE RECORDS SUMMARY | 2017-01-11 17:01 | External Medical Summary | Referral Summary ---
:1990 Author Organization Via [facility] Address [address] [place] [address] Care Team Providers Name Role Phone No PCP, States Primary Care Physician Encounter [facility] [id number] Date(s): 02/07/15 - 02/07/15 [facility] [address] [place] [address] [phone] Discharge Diagnosis: Paresthesia of both hands Discharge Diagnosis: Carpal tunnel syndrome Final: CARPAL TUNNEL SYNDROME Final: TOBACCO USE DISORDER Discharge Disposition: 01-Home or Self Care Attending Physician: Maycol Rm MD Admitting Physician: Maycol Rm MD Vital Signs Most recent to oldest [Reference Range]: 1 Temperature Oral [35.8-37.3 degC] 37.2 degC (02/07/15 3:03 PM) Peripheral Pulse Rate [60-100 bpm] 97 bpm (02/07/15 3:03 PM) Respiratory Rate [14-20 br/min] 18 br/min (02/07/15 3:03 PM) Blood Pressure [90-140/60-90 mmHg] 125/79mmHg (02/07/15 3:03 PM) SpO2 98 % (02/07/15 3:03 PM) Problem List Condition Effective Dates Status [...] of knee Bilateral Myringotomy1 Rt Testicle Lowered [place] teeth removed 1as an infant Social History Social History Type Response Smoking Status Current every day smoker; Type: chewing tobacco1 1x 10 years Assessment and Plan No data available for this section
--- OUTSIDE RECORDS SUMMARY | 2017-01-11 17:01 | External Medical Summary | Referral Summary ---
:1990 Author Organization [facility] Address [address] [place] [address] Care Team Providers Name Role Phone No PCP, Pt States Primary Care Physician Encounter [facility] [id number] Date(s): 08/02/16 - 08/02/[address] [id number] Discharge Diagnosis: Headache Discharge Diagnosis: Body aches Discharge Diagnosis: Chronic back pain Discharge Disposition: 01-Home or Self Care Attending Physician: Vadim Silver MD Admitting Physician: Vadim Silver MD Vital Signs Most recent to oldest [Reference Range]: 1 Temperature Oral [35.8-37.3 degC] 37 degC (08/02/16 5:04 PM) Peripheral Pulse Rate [60-100 bpm] 75 bpm (08/02/16 7:40 PM) Respiratory Rate [14-20 br/min] 20 br/min (08/02/16 5:04 PM) Blood Pressure [90-140/60-90 mmHg] 152/86mmHg *HI* (08/02/16 7:40 PM) SpO2 99 % (08/02/16 5:04 PM) Problem List Condition Effective Dates Status [...] Daily, 0 Refill(s) Start Date: 11/17/15 Status: Orderedmeloxicam 15 mg oral tablet 15 mg 1 tabs, Oral, Daily, # 7 tabs, 0 Refill(s) Start Date: 07/09/16 Stop Date: 07/16/16 Status: OrderedNorco 7.5 mg-325 mg oral tablet [...] of knee Bilateral Myringotomy1 Rt Testicle Lowered [place] teeth removed 1as an Social History Social History Type Response Smoking Status Current every day smoker; Type: chewing tobacco1 1x 10 years Assessment and Plan No data available for this section
--- OUTSIDE RECORDS SUMMARY | 2017-01-11 17:01 | External Medical Summary | Referral Summary ---
:1990 Author Organization Via [facility] Address [address] [place] [address] Care Team Providers Name Role Phone No PCP, Pt States Primary Care Physician Encounter [facility] [id number] Date(s): 11/17/15 - 11/17/[address] [address] Discharge Diagnosis: Chest pain Discharge Diagnosis: Pleurisy Discharge Disposition: 01-Home or Self Care Attending Physician: Vadim Silver MD Admitting Physician: Vadim Silver MD Vital Signs Most recent to oldest [Reference Range]: 1 Temperature Oral [35.8-37.3 degC] 36.9 degC (11/17/15 1:17 PM) Peripheral Pulse Rate [60-100 bpm] 78 bpm (11/17/15 1:17 PM) Respiratory Rate [14-20 br/min] 18 br/min (11/17/15 1:17 PM) Blood Pressure [90-140/60-90 mmHg] 124/84mmHg (11/17/15 1:17 PM) Mean Arterial Pressure, Cuff 97 mmHg (11/17/15 1:17 PM) SpO2 99 % (11/17/15 1:17 PM) Problem List Condition Effective Dates Status [...] mg oral tablet 1 tabs, Oral, q6hr, as needed for pain, X 5 days, # 12 tabs, 0 Refill(s) Start Date: 11/17/15 Stop Date: 11/22/15 Status: OrderedNorco 7.5 mg-325 mg oral tablet [...] Refill(s) Start Date: 08/01/14 Status: Ordered Results Chemistry Most recent to oldest [Reference Range]: 1 Sodium Venous [136-144 mEq/L] 141 mEq/L (11/17/15 11:56 AM) Potassium Venous [3.6-5.1 mEq/L] 4.3 mEq/L1 (11/17/15 11:56 AM) Calcium Ionized Venous [1.19-1.41 mmol/L] 1.16 mmol/L *LOW* (11/17/15 11:56 AM) Total CO2 Venous [25-29 mEq/L] 23 mEq/L *LOW* (11/17/15 11:56 AM) HGB Venous NPT [14.0-16.0 gm/dL] 15.6 gm/dL (11/17/15 11:56 AM) HCT Venous [42.0-52.0 %] 46.0 % (11/17/15 11:56 AM) Glucose Venous [70-100 mg/dL] 93 mg/dL (11/17/15 11:56 AM) BUN Venous [4-20] 11 (11/17/15 11:56 AM) Creatinine Venous [0.7-1.2 mg/dL] 0.7 mg/dL (11/17/15 11:56 AM) Venous CL [99-109 mEq/L] 105 mEq/L (11/17/15 11:56 AM) Anion Gap, David [3-20] 13 (11/17/15 11:56 AM) Troponin-POC Negative (11/17/15 12:01 PM) 1Result Comment: This test was performed on a whole blood specimen. The presence or absence of hemolysis cannot be assessed. Hemolysis can falsely elevate potassium levels. Normals are for venous specimens only.Urinalysis Most recent to oldest [Reference Range]: 1 Type Venous (11/17/15 11:56 AM) Immunizations No data available for this section Procedures Procedure Date Related Diagnosis Body Site Closed Tx of the Rt Tibia Plateau Fx 02/08/11 Arthroscopy of knee Bilateral Myringotomy1 Rt Testicle Lowered [place] teeth removed 1as an Social History Social History Type Response Smoking Status Current every day smoker; Type: chewing tobacco1 1x 10 years Assessment and Plan No data available for this section
--- OUTSIDE RECORDS SUMMARY | 2017-01-11 17:01 | External Medical Summary | Referral Summary ---
:[address] [facility] Address [address] [place] [address] Care Team Providers Name Role Phone No PCP, Pt States Primary Care Physician Encounter [facility] [id number] Date(s): 01/31/15 - 01/31/15 [id number] [place] [address] Discharge Diagnosis: Overuse syndrome Final: DISTURBANCE OF SKIN SENSATION Discharge Diagnosis: Hand paresthesia Discharge Disposition: 01-Home or Self Care Attending Physician: Vadim Silver MD Admitting Physician: Vadim Silver MD Vital Signs Most recent to oldest [Reference Range]: 1 Temperature Oral [35.8-37.3 degC] 36.5 degC (01/31/15 12:40 PM) Peripheral Pulse Rate [60-100 bpm] 79 bpm (01/31/15 1:43 PM) Respiratory Rate [14-20 br/min] 18 br/min (01/31/15 1:43 PM) Blood Pressure [90-140/60-90 mmHg] 138/80mmHg (01/31/15 1:43 PM) SpO2 98 % (01/31/15 1:43 PM) Problem List Condition Effective Dates Status [...] of knee Bilateral Myringotomy1 Rt Testicle Lowered [place] teeth removed 1as an infant Social History Social History Type Response Smoking Status Current every day smoker; Type: chewing tobacco1 1x 10 years Assessment and Plan No data available for this section
--- OUTSIDE RECORDS SUMMARY | 2017-01-11 17:01 | External Medical Summary | Referral Summary ---
:1990 Author Organization Via [facility] Address [address] [place] [address] Care Team Providers Name Role Phone No PCP, Pt States Primary Care Physician Encounter [facility] [id number] Date(s): 04/23/15 - 04/24/[address] [address] [phone] Final: Other forms of stomatitis Final: Diarrhea, unspecified Final: Nicotine dependence, chewing tobacco, uncomplicated Discharge Diagnosis: Chewing tobacco use Discharge Diagnosis: [...] [0.80-3.30 10*3] 2.85 10*3 (04/23/15 11:48 PM) [place] Absolute [0.30-1.00 10*3] 0.51 10*3 (04/23/15 11:48 [...] mg/dL (04/23/15 11:48 PM) eGFR [>60] >601 (04/23/15 11:48 PM) Calcium Lvl [8.6-10.0 mg/dL] 9.3 mg/dL [...] of knee Bilateral Myringotomy1 Rt Testicle Lowered [place] teeth removed 1as an infant Social History Social History Type Response Smoking Status Current every day smoker; Type: chewing tobacco1 1x 10 years Assessment and Plan No data available for this section
--- OUTSIDE RECORDS SUMMARY | 2017-01-11 17:01 | External Medical Summary | Referral Summary ---
:1990 Author Organization Via [facility] Address [address] [place] [address] Care Team Providers Name Role Phone No PCP, Pt States Primary Care Physician Encounter [facility] [id number] Date(s): 09/14/15 - 09/14/[address] [address] [phone] Discharge Diagnosis: Vertigo Discharge Disposition: 01-Home or Self Care Attending Physician: Vadim Silver MD Admitting Physician: Vadim Silver MD Vital Signs Most recent to oldest [Reference Range]: 1 Temperature Oral [35.8-37.3 degC] 36.8 degC (09/14/15 11:30 AM) Peripheral Pulse Rate [60-100 bpm] 78 bpm (09/14/15 1:13 PM) Respiratory Rate [14-20 br/min] 18 br/min (09/14/15 1:13 PM) Blood Pressure [90-140/60-90 mmHg] 127/81mmHg (09/14/15 1:13 PM) SpO2 95 % (09/14/15 1:13 PM) Problem List Condition Effective Dates Status [...] of knee Bilateral Myringotomy1 Rt Testicle Lowered [place] teeth removed 1as an infant Social History Social History Type Response Smoking Status Current every day smoker; Type: chewing tobacco1 1x 10 years Assessment and Plan No data available for this section
--- OUTSIDE RECORDS SUMMARY | 2017-01-11 17:01 | External Medical Summary | Referral Summary ---
:1990 Author Organization Via [facility] Address [address] [place] [address] Care Team Providers Name Role Phone No PCP, Pt States Primary Care Physician Encounter [facility] [id number] Date(s): 03/09/15 - 03/09/[address] [address] Final: UNSPECIFIED CHEST PAIN Final: TOBACCO USE DISORDER Discharge Diagnosis: Chest pain, unspecified Discharge Disposition: 01-Home or Self Care Attending Physician: Vadim Silver MD Admitting Physician: Vadim Silver MD Vital Signs Most recent to oldest [Reference Range]: 1 Temperature Oral [35.8-37.3 degC] 36.7 degC (03/09/15 11:42 AM) Peripheral Pulse Rate [60-100 bpm] 68 bpm (03/09/15 2:32 PM) Respiratory Rate [14-20 br/min] 18 br/min (03/09/15 2:32 PM) Blood Pressure [90-140/60-90 mmHg] 132/86mmHg (03/09/15 2:32 PM) SpO2 100 % (03/09/15 2:32 PM) Problem List Condition Effective Dates Status [...] Range]: 1 WBC [4.8-10.8 10*3/uL] 7.2 10*3/uL (03/09/15 11:55 AM) RBC [4.60-6.20] 5.37 (03/09/15 11:55 AM) Hgb [14.0-18.0 gm/dL] 16.4 gm/dL (03/09/15 11:55 AM) Hct [42.0-52.0 %] 45.2 % (03/09/15 11:55 AM) MCV [82.0-99.0 fL] 84.2 fL (03/09/15 11:55 AM) MCH [27.0-32.0 pg] 30.5 pg (03/09/15:55 AM) MCHC [32.0-36.0 gm/dL] 36.3 gm/dL *HI* (03/09/15 11:55 AM) RDW [11.5-14.5 %] 12.4 % (03/09/15 11:55 AM) Platelet [150-400 10*3/uL] 241 10*3/uL (03/09/15 11:55 AM) MPV [9.4-12.3 fL] 11.0 fL (03/09/15 11:55 AM) Immature Granulocytes [0.0-1.0 %] 0.1 % (03/09/15 11:55 AM) Neutrophils [51-75 %] 64 % (03/09/15 11:55 AM) Lymphocytes [20-46 %] 27 % (03/09/15 11:55 AM) Monocytes [4-11 %] 6 % (03/09/15 11:55 AM) Eosinophils [0-4 %] 4 % (03/09/15 11:55 AM) Basophils [0-2 %] 0 % (03/09/15 11:55 AM) Neutro Absolute [1.90-7.00 10*3] 4.54 10*3 (03/09/15 11:55 AM) Lymph Absolute [0.80-3.30 10*3] 1.95 10*3 (03/09/15 11:55 AM) [place] Absolute [0.30-1.00 10*3] 0.40 10*3 (03/09/15 11:55 AM) Eos Absolute [0.00-0.50 10*3] 0.26 10*3 (03/09/15 11:55 AM) Baso Absolute [0.00-0.20 10*3] 0.00 10*3 (03/09/15 11:55 AM) Nucleated RBC Automated [0 /100 WBC] 0.0 /100 WBC (03/09/15 11:55 AM) Chemistry Most recent to oldest [Reference Range]: 1 Sodium Lvl [136-144 mEq/L] 140 mEq/L (03/09/15 11:55 AM) Potassium Lvl [3.6-5.1 mEq/L] 4.0 mEq/L (03/09/15 11:55 AM) Chloride [99-109 mEq/L] 104 mEq/L (03/09/15 11:55 AM) CO2 [22-32 mEq/L] 28 mEq/L (03/09/15 11:55 AM) AGAP [3-20] 8 (03/09/15 11:55 AM) BUN [4-20 mg/dL] 9 mg/dL (03/09/15 11:55 AM) Glucose Lvl [70-100 mg/dL] 103 mg/dL *HI* (03/09/15 11:55 AM) Creatinine Lvl [0.64-1.27 mg/dL] 0.80 mg/dL (03/09/15 11:55 AM) eGFR [>60] >601 (03/09/15 11:55 AM) Calcium Lvl [8.6-10.0 mg/dL] 9.8 mg/dL (03/09/15 11:55 AM) Albumin Lvl [3.5-4.8 gm/dL] 4.5 gm/dL (03/09/15 11:55 AM) Total Protein [6.1-7.9 gm/dL] 7.6 gm/dL (03/09/15 11:55 AM) Globulin [1.9-4.3 gm/dL] 3.1 gm/dL (03/09/15 11:55 AM) ALT [17-63 U/L] 47 U/L (03/09/15 11:55 AM) AST [15-41 U/L] 32 U/L (03/09/15 11:55 AM) Alk Phos [26-104 U/L] 119 U/L *HI* (03/09/15 11:55 AM) Bili Total [0.2-1.2 mg/dL] 0.9 mg/dL2 (03/09/15 11:55 AM) Troponin [<0.06 ng/mL] <0.05 ng/mL (03/09/15 11:55 AM) 1Result Comment: Multiply eGFR results by 1.21 for race.2Result Comment: Naproxen, specifically the metabolite O-desmethylnaproxen, may cause spurious elevation in Total Bilirubin levels. Immunizations No data available for this section Procedures Procedure Date Related Diagnosis Body Site Closed Tx of the Rt Tibia Plateau Fx 02/08/11 Arthroscopy of knee Bilateral Myringotomy1 Rt Testicle Lowered [place] teeth removed 1as an infant Social History Social History Type Response Smoking Status Current every day smoker; Type: chewing tobacco1 1x 10 years Assessment and Plan No data available for this section
--- OUTSIDE RECORDS SUMMARY | 2017-01-11 17:01 | External Medical Summary | Referral Summary ---
:1990 Author Organization Via [facility] Address [address] [place] [address] Care Team Providers Name Role Phone Carolynn Sandoval Primary Care Physician Encounter [facility] [id number] Date(s): 07/09/16 - 07/09/[address] [address] Discharge Diagnosis: Lumbago Discharge Disposition: 01-Home or Self Care Attending Physician: Vadim Silver MD Admitting Physician: Vadim Silver MD Vital Signs Most recent to oldest [Reference Range]: 1 Temperature Oral [35.8-37.3 degC] 37.0 degC (07/09/16 9:25 PM) Peripheral Pulse Rate [60-100 bpm] 114 bpm *HI* (07/09/16 9:25 PM) Respiratory Rate [14-20 br/min] 18 br/min (07/09/16 9:25 PM) Blood Pressure [90-140/60-90 mmHg] 149/97mmHg *HI* (07/09/16 9:25 PM) SpO2 99 % (07/09/16 9:25 PM) Problem List Condition Effective Dates Status [...] # 21 tabs, 0 Refill(s) Start Date: 07/09/16 Stop Date: 07/16/16 Status: OrderedHYDROcodone-acetaminophen 5 mg-325 mg oral tablet [...] of knee Bilateral Myringotomy1 Rt Testicle Lowered [place] teeth removed 1as an Social History Social History Type Response Smoking Status Current every day smoker; Type: chewing tobacco1 1x 10 years Assessment and Plan No data available for this section
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
[2017-01-11] MEDS: SALINE FLUSH 10ml SYRINGE IVF PRN ×2 (17:47→17:51)
[2017-01-11] MEDS ORDERED: ERTAPENEM 1 G in NS 100 ML IV ONE (18:49)
[2017-01-11] MEDS: NS 1,000 ML IV SCH (18:54)
[2017-01-11] MEDS ORDERED: ROCURONIUM 50 MG/5 ML INJECTION IVP ONE (19:28)
[2017-01-11] MEDS ORDERED: PROPOFOL 20 ML ONE (19:28)
[2017-01-11] MEDS ORDERED: LIDOCAINE 2% (100mg/5mL) PF 5ml vl ONE (19:28)
[2017-01-11] MEDS ORDERED: SUCCINYLCHOLINE 20mg/mL 10mL INJECTION ONE (19:28)
--- NOTE | 2017-01-11 19:32 | General Surg History&Physical ---
- History of Present Illness Chief complaint: rlq abdominal pain HPI: Patient presents with one day history for RLQ abdominal pain PFSH Patient Stated Medical History Hypertension Yes Surgical History: no abdominal surgery Family History: diabetes - Social History Smoking status: Never smoker Substance use type: does not use Medications Home Medications Medication Instructions Recorded Confirmed Type No known Home medications [No home 01/11/17 01/11/17 History meds] Allergies Allergy/AdvReac Type Severity Reaction Status Date / Time Iodine and Iodide Containing Allergy Unknown Rash Verified 01/11/17 16:56 Produc Review of Systems 10-point ROS: negative except for HPI - Vital Signs Last Vital Signs Temp 98.7 F 01/11/17 16:33 Pulse 92 01/11/17 17:53 Resp 18 01/11/17 17:53 BP 134/81 01/11/17 17:53 Pulse Ox 96 01/11/17 17:53 - Laboratory Result Diagrams: 01/11/17 17:41 01/11/17 17:41 - Abnormal Exam Abdominal: tender, voluntary guarding - Normal Exam General: awake, alert, oriented, resting, awakens easily, no acute distress, other Eyes: PERRL, EOMI, sclera clear, other Neck: supple, no thyromegaly Cardiovascular: regular rhythm Respiratory: clear all abel Psychiatric: normal affect, normal mood, other Neurological: CN 2-12 grossly intact General Surgery Results - Results Labs: 01/11/17 17:41 01/11/17 17:41 (1) Appendicitis Status: Acute Current visit: Yes Plan: laparoscopic appendectomy Hospital Course Summary Disclaimer: The visit summary below is not to be considered part of the above Progress Note.
[2017-01-11] MEDS ORDERED: ONDANSETRON 4 MG/2 ML INJECTION IVP PRN ×2 (19:33→20:19)
[2017-01-11] MEDS ORDERED: KETOROLAC 15 MG/ML INJECTION IVP PRN (19:33)
[2017-01-11] MEDS ORDERED: BUPIVACAINE 0.25% (2.5mg/ml) PF 30ml INJECTION ONE (19:33)
[2017-01-11] MEDS ORDERED: METOCLOPRAMIDE 10mg/2ml INJECTION IVP PRN (19:33)
[2017-01-11] MEDS ORDERED: MORPHINE SULFATE 4 MG SYRINGE IVP PRN (19:33)
[2017-01-11] MEDS ORDERED: MORPHINE SULFATE 10 MG/ML VIAL IVP PRN (19:33)
--- NOTE | 2017-01-11 19:34 | Anesthesia Preoperative Report ---
Anesthesia Preoperative Record - Date and Time Date: 01/11/17 Preoperative Diagnosis: Severe Abdominal Pain Proposed Procedure: Lap Appy NPO Since Date: 01/11/17 NPO Since Time: 11:00 Allergies/Adverse Reactions: Allergies Allergy/AdvReac Type Severity Reaction Status Date / Time Iodine and Iodide Containing Allergy Unknown Rash Verified 01/11/17 16:56 Produc - Vital Signs Vital Signs: Temperature 98.7 F 01/11/17 16:33 Pulse Rate 92 01/11/17 17:53 Respiratory Rate 18 01/11/17 17:53 Blood Pressure 134/81 01/11/17 17:53 Pulse Oximetry 96 01/11/17 17:53 Oxygen Delivery Method Room Air Height and Weight: Height 1.68 m Weight 112.7 kg - Medications Inpatient Medications: Current Medications Sodium Chloride (Normal Saline) 1,000 mls @ 125 mls/hr IV .Q8H NIDHI Last Admin: 01/11/17 18:54 Dose: 125 mls/hr Sodium Chloride (Iv Flush) 10 - 80 ml IVF PRN PRN PRN Reason: Flushing Last Admin: 01/11/17 17:51 Dose: 10 ml Home Medications: Home Medications Medication Instructions Recorded Confirmed Type No known Home medications [No home 01/11/17 01/11/17 History meds] Is Patient on Beta Brina?: No - Medical History Cardiovascular: Reports: Hypertension - Surgical History Musculoskeletal Surgery/Tx: Reports: Knee Arthroscopy Anesthesia Reactions: None Hx Family Anesthesia Reaction: No History of Motion Sickness: No - Social History Smoking Status: Former smoker Hx Chewing Tobacco Use: Yes Second Hand Exposure: No Substance Use Type: does not use Alcohol Intake Frequency: does not drink - Pertinent Findings Laboratory: CBC and BMP 01/11/17 17:41 01/11/17 17:41 BMP 01/11/17 17:41 Sodium 143 Potassium 4.3 Chloride 106 Carbon Dioxide 28 BUN 9.0 Creatinine 0.7 L Glucose 89 Calcium 9.6 Liver Function 01/11/17 Range/Units 17:41 Total Bilirubin 0.80 (0.20-1.30) MG/DL AST 36 (17-59) U/L ALT 58 (21-72) U/L Alkaline Phosphatase 100 (38-126) U/L Albumin 4.6 (3.5-5.0) G/DL Urine 07/19/17 Range/Units 17:37 Urine Color Yellow (YELLOW) Urine Clarity Clear Urine pH 8.5 A (5.0-8.0) Ur Specific [place] 1.010 L (1.015-1.025) Urine Protein Negative (NEGATIVE) Urine Glucose (UA) Negative (NEGATIVE) EKG Rhythm: Normal Sinus Rhythm - Physical Exam Respiratory Exam: Present: lungs clear - Airway Assessment Mallampati Score: II TMD: 3 Fingerbreadths Overall Assessment: no airway concerns - ASA ASA Score: 2 - Plan Anesthesia: General Inhalation Gases - Discussion Discussion: Discussed risks/options/alternatives of anesthesia and questions answered. Patient consents. Nursing pain assessment noted. Present for Discussion: family member Attestation Statement: Prior to the delivery of any anesthetic medication, I examined the patient, developed the plan, obtained the patient's consent and discussed the risk and benefits of the procedure with the patient/guardian. - Additional Information Seen by Anesthesia: Yes
[2017-01-11] MEDS ORDERED: SALINE FLUSH *Sterile* 10 ML SYRINGE ONE (19:40)
[2017-01-11] MEDS ORDERED: BUPIVACAINE 0.5%/EPI 1:200,000 INJ 30ml SDV ONE (19:41)
[2017-01-11] MEDS ORDERED: FentaNYL 100 MCG/2 ML INJECTION ONE (20:10)
[2017-01-11] MEDS ORDERED: DEXAMETHASONE 4 MG/ML INJECTION ONE (20:11)
[2017-01-11] MEDS ORDERED: ONDANSETRON 4 MG/2 ML INJECTION ONE (20:11)
[2017-01-11] MEDS ORDERED: KETOROLAC 30 MG/ML INJECTION ONE (20:19)
[2017-01-11] MEDS ORDERED: GLYCOPYRROLATE 0.4 MG/2 ML INJECTION ONE (20:20)
[2017-01-11] MEDS ORDERED: NEOSTIGMINE 10 MG/10 ML INJECTION ONE (20:20)
--- NOTE | 2017-01-11 20:44 | General Surgery Procedure Note ---
Date of Procedure: 01/11/17 Surgeon: Darcie Anesthesia: General Inhalation Gases Pre-op diagnosis: appendicitis Postoperative Diagnosis: same Procedure: laparoscopic appendectomy Estimated Blood Loss: See Anesthesia Record.
[2017-01-11] MEDS: HYDROMORPHONE 2 MG/ML INJECTION IVP PRN ×3 (20:53→21:19)
--- NOTE | 2017-01-11 20:54 | Anesthesia Postoperative Note ---
- Date and Time Date: 01/11/17 Time: 20:53 - Status Patient Participated in Evaluation: Patient Participated in Person Vital Signs: Temperature 98.7 F 01/11/17 19:49 Pulse Rate 94 01/11/17 19:49 Respiratory Rate 18 01/11/17 19:49 Blood Pressure 129/56 01/11/17 19:49 Pulse Oximetry 98 01/11/17 19:49 Oxygen Delivery Method Room Air Respiratory Function: Airway Patent Cardiovascular Function: Regular Pulse EKG Rhythm: Normal Sinus Rhythm Mental Status: Alert and Oriented Pain Intensity: 10 (Pain meds ordered) Hydration: IV Infusing Complications During Recover: None Apparent - Follow-Up Instructions Instructions: Per Surgeon
[2017-01-11 22:08] VITALS: BMI 40.2
[2017-01-11] MEDS: HYDROCODONE/APAP 5mg/325mg TABLET PO PRN (23:09)
[2017-01-12] MEDS: NS 1,000 ML IV SCH ×2 (00:51→12:13)
[2017-01-12] MEDS: HYDROCODONE/APAP 5mg/325mg TABLET PO PRN ×2 (05:35→10:26)
--- NOTE | 2017-01-12 07:20 | History and Physical ---
FINDINGS Mr. Starks is a 26-year-old young male whom I was asked to see earlier this evening through the emergency room as a result of his history and physical findings of abdominal pain in conjunction with an abnormal CT scan. Upon questioning the patient he states that earlier today he began to notice some pain within his lower abdomen. As the day has progressed the pain has now become more severe and is now located within his right lower quadrant. Pain is made worse with movement. Pain is made worse with "laughing or sneezing." Pain is "somewhat better by lying still." Patient denies any nausea or vomiting in association with the pain. He has had some loose stools. He denies any prior history of pain similar to this in the past. PAST MEDICAL HISTORY Chronic Illnesses/System disorders: 1. History for hypertension. PAST SURGICAL HISTORY 1. Extraction of wisdom teeth. 2. Knee surgery. MEDICATIONS Lisinopril. ALLERGIES No known drug allergies. SOCIAL HISTORY The patient denies alcohol or tobacco use. FAMILY HISTORY The patient states his parents are alive and healthy. There is a history for diabetes within a grandmother. REVIEW OF SYSTEMS A complete review of systems was undertaken with the patient and was essentially negative except as stated above in findings section and past medical history section for constitutional, HEENT, cardiac, GI, , musculoskeletal, hematologic/oncologic, endocrine, and psychiatric. PHYSICAL EXAMINATION Mr. Starks is a 26-year-old gentleman who does appear to be in some discomfort. VITALS: Temperature 98.7, pulse 92, respirations 18, blood pressure 07/25/1942 , SaO2 96% on room air. HEENT: Normocephalic. Pupils are equal, round and reactive to light and accommodation. NECK: Supple without lymphadenopathy. CHEST: Clear to auscultation bilaterally. HEART: Regular rate and rhythm. Normal S1 and S2 without gallops, murmurs or clicks. ABDOMEN: Palpation of the abdomen does indeed reveal localized tenderness to the right lower quadrant of his abdomen. The patient does have a component of both voluntary and involuntary guarding with palpation in the right lower quadrant. Does not have gregorio rebound tenderness. Remainder of abdomen is soft and nontender. I did not appreciate any evidence for hepatosplenomegaly or other abnormal masses. NEURO: Cranial nerves II-XII grossly intact. Patient is without focal motor or sensory deficits. LABORATORY/RADIOGRAPH EVALUATION The patient had a CBC and his white count was normal at 8.4. Hemoglobin was normal at 15.2. CMP was obtained and found to be essentially within normal limits. UA was obtained and found be essentially within normal limits. CT scan of his abdomen and pelvis was obtained which revealed evidence for early appendicitis. ASSESSMENT Appendicitis. PLAN Laparoscopic appendectomy. I informed the patient that it was my clinical intuition, given his clinical history, physical findings and abnormal CT scan, that he was indeed suffering from appendicitis. It was therefore my recommendation to the patient that we should proceed with surgical intervention/laparoscopic appendectomy. I did discuss in detail with the patient what a laparoscopic appendectomy entailed and its associated risk which included, but was not limited to, bleeding, infection, potential conversion to an open procedure. The patient understood and wished to proceed. The patient was given broad-spectrum antibiotics/Invanz while in the emergency room. GERMAINE
[2017-01-12 07:37] VITALS: RESP 16; O2SAT 95
--- NOTE | 2017-01-12 08:29 | CT Scan Report ---
Indication: RLQ abdominal pain,r/o appendectomy, iodine ALLERGY PROCEDURE: CT abdomen pelvis wo con: Encounter: Initial Comparison: None Technique: Axial CT images were performed through the abdomen and pelvis without intravenous contrast. Coronal and sagittal two-dimensional reformats. Automated Exposure Control and Iterative Reconstruction dose reducing techniques were utilized. Findings: The lung bases are clear. The unenhanced contours of the liver, contracted gallbladder, spleen, pancreas and adrenal glands are within normal limits. The kidneys are normal. No abdominal or pelvic adenopathy. Bladder is normal. Prostate and rectum are normal. No bowel obstruction. There is inflammation surrounding the appendix with mild dilatation of the tip up to 0.9 cm in diameter. There is no free air or fluid pocket to suggest an abscess. Bone windows are within normal limits. Impression: Acute uncomplicated appendicitis. Emergent surgical consultation is recommended. There is a preliminary report by [employer] .
--- NOTE | 2017-01-12 10:14 | General Surgery Progress Note ---
Subjective Patient reports: feels better, pain is less (less pain than upon admission and the pain is more incisional. The pre-ED pain is gone.), tolerating a regular diet, no bowel movement, afebrile, other (he is noticing buring with urination and some difficulty in maintaining a stream.) - Vital Signs Last Vital Signs Temp 98.2 F 01/12/17 07:36 Pulse 88 01/12/17 07:36 Resp 16 01/12/17 07:36 BP 128/61 01/12/17 07:36 Pulse Ox 95 01/12/17 07:36 - Laboratory Result Diagrams: 01/11/17 17:41 01/11/17 17:41 - Normal Exam General: no acute distress Respiratory: no labored breathing Abdominal: soft, appropriately tender (at trocar sites. Non-tender to lateral palpation and pelvic rocking.), incision(s) (CDI, without erythema and ecchymosis) Assessment and Plan (1) Appendicitis Current Visit: Yes Status: Resolved Qualifiers: Appendicitis type: acute appendicitis (2) Dysuria Current Visit: Yes Status: Acute Plan: Will get a U/A Miralax to prevent constipation Anticipate DC to home today. Post op instructions discussed and questions answered. Work release for January 19 with lifting restriction of 25 lbs. UA was negative, will give 1 dose Pyridium before discharge, encourage plenty of fluid intake. Hospital Course Summary Disclaimer: The visit summary below is not to be considered part of the above Progress Note. Sepsis Assessment - Evaluation Sepsis screening result: No Definite Risk
[2017-01-12] MEDS ORDERED: POLYETHYL GLYCOL 3350 17gm PACKET PO SCH (10:15)
[2017-01-12] MEDS ORDERED: IBUPROFEN 800 MG TABLET PO PRN (10:18)
--- NOTE | 2017-01-12 10:46 | Operative Note ---
DATE OF SERVICE 01/11/2017 SURGEON Pratik Sprague MD PREOPERATIVE DIAGNOSIS Appendicitis. POSTOPERATIVE DIAGNOSIS Appendicitis. PROCEDURE Laparoscopic appendectomy. ANESTHESIA General endotracheal EBL AND FLUIDS Please see chart. BRIEF HISTORY/INDICATIONS Mr. Starks is a 26-year-old gentleman I was asked to see earlier through the emergency room as a result of his history and physical findings of abdominal pain. Upon examination the patient was found to be exquisitely tender within his right lower quadrant. CT scan was positive for early appendicitis. As a result of the above indications it was recommended to the patient that he undergo surgical intervention. For completeness please refer to notes included in the patient's chart. FINDINGS Upon laparoscopy the liver edge is smooth without nodularities. Small bowel, omentum, colon which was visualized were within normal limits. The appendix was indeed found to be indurated and erythematous in nature consistent with early appendicitis. There was no evidence for perforation. A standard laparoscopic appendectomy was completed without incident. DESCRIPTION OF PROCEDURE After informed consent was obtained, the patient was brought to the operative suite and placed on the table in a supine fashion. Abdomen was then prepped and draped in sterile fashion. Formal time-out was then completed. 0.5% Marcaine with epinephrine was injected just beneath the level of the umbilicus. A 2-cm curved incision was then made through the area of analgesia. Dissection was then carried down through deep subcuticular tissues to underlying fascia. Fascia was then grasped with two Rosa clamp, retracted anteriorly. A 1 cm incision was then made between the two Rosa clamps. A hemostat was then introduced into the fascial incision and gently spread. A U-stitch was then placed with 0 Vicryl. A 12-mm Kary port was then placed in the peritoneal cavity and pneumoperitoneum was established to a patient pressure of 15 mmHg utilizing carbon dioxide. An additional 5 mm port was then placed within the suprapubic region as well as an additional 10/12 mm port within the right upper quadrant. Each port site was preinjected with 0.5% Marcaine with epinephrine and placed under direct visualization. Next, the abdominal cavity was explored via laparoscope. Findings were as noted above. Attention was then focused to the appendix which was abnormal as stated above. Appendix was grasped and retracted anteriorly. A small opening was then created within the mesoappendix adjacent to the base of the appendix. A linear stapler was then placed across the base of the appendix and fired. Vascular reload was then placed within the linear stapler and placed across the mesoappendix and fired. Unfortunately, there was a bleeding vessel coming forth from the staple line of the mesoappendix. This bleeding point was then grasped and retracted anteriorly. A Horizon hemoclip was then placed overlying the bleeding site resulting in complete hemostasis. Next, the appendix was then placed within a laparoscopic retrieval bag and removed via the infraumbilical port site. Port was then replaced and pneumoperitoneum reestablished. Attention was then focused back towards the staple lines. Irrigation was then again performed overlying each staple line and all irrigant was suctioned till clear. Both staple lines were intact and hemostatic at this time. Next, ports were removed under direct visualization. Previously placed U-stitch at the infraumbilical port site was then secured resulting in imbrication of the fascial edges. All skin incisions were then closed in a subcuticular fashion with 4-0 Monocryl. The patient is in the process of awakening from his anesthetic and will be sent back to the recovery room once deemed in stable condition. hui HERRON
[2017-01-12] MEDS ORDERED: PHENAZOPYRIDINE 95 MG TABLET PO ONE (11:22)
--- NOTE | 2017-01-12 11:31 | Discharge Instructions ---
Discharge Plan - Med Rec/Dispo Referrals/Follow Up: Anne Pizarro APRN [Advanced Practice Nurse] - 01/24/17 11:15 am Prescriptions: New Hydrocodone/APAP 5/325 [[place] 5/325] 1 - 2 tab PO Q5H PRN #30 tablet PRN Reason: Pain PEG 3350 17gm PACKET [Miralax] 17 gm PO DAILY #10 packet Ibuprofen [Motrin] 800 mg PO Q6H PRN #30 tablet PRN Reason: Pain - Disposition Discharged Home, Self-Care
[2017-01-12 12:01] VITALS: BP 137/61; PULSE 99; TEMP 98.5
== END 2017-01-12 13:37 | disposition home or self-care (01) ==
LOC: SRG 16:25 → ED 16:25 → SRG 19:38
PROVIDERS: ADMIT Surgery; ATTEND Surgery